=== PATIENT | male | born 1945 | race Caucasian/White ===

== ENCOUNTER → 2021-05-20 | Outpatient (CLI) | payer MEDICARE, OTHER ==
--- NOTE | 2021-05-20 13:53 | US ---
EXAMINATION TYPE: US venous doppler duplex LE RT DATE OF EXAM: 05/20/2021 1:35 PM COMPARISON: NONE CLINICAL HISTORY: I80.9 Phlebitis and thrombophlebitis redness ON UPPER TIGHT SIDE PERFORMED: RT TECHNIQUE: The lower extremity deep venous system is examined utilizing real time linear array sonog rigoberto with graded compression, doppler sonography and color-flow sonography. VESSELS IMAGED: Common Femoral Vein Deep Femoral Vein Greater Saphenous Vein * Femoral Vein Popliteal Vein Small Saphenous Vein * Proximal Calf Veins (* superficial vessels) Right Leg: Negative for DVT IMPRESSION: 1. No evidence of deep venous thrombosis in the right lower extremity veins.
== END | disposition home or self-care (01) ==
LOC: RADUSWWP 12:35
PROVIDERS: ATTEND Orthopaedic Surgery
DX: I80.9 Phlebitis and thrombophlebitis of unspecified site (principal); M79.651 Pain in right thigh

== ENCOUNTER → 2025-05-15 | Outpatient (CLI) | payer MEDICARE ==
--- NOTE | 2025-05-16 08:30 | US ---
EXAMINATION TYPE: US kidneys/renal and bladder DATE OF EXAM: 05/15/2025 COMPARISON: NONE CLINICAL INDICATION: Male, 79 years old with history of R31.1 BENIGN ESSENTIAL MICROSCOPIC HEMATURIA; hematuria TECHNIQUE: Grayscale imaging of the bilateral kidneys and urinary bladder: FINDINGS: EXAM MEASUREMENTS: Right Kidney: 13.1 x 5.9 x 6.4 cm Left Kidney: 15.2 x 5.5 x 7.3 cm Right Kidney: dilated renal pelvis , no calculi or hydronephrosis. Left Kidney: dilated renal pelvis no calculi or hydronephrosis. Bladder: appears wnl, slightly limited due to ostomy bag Bilateral Jets seen: Only left jet seen There is no evidence for hydronephrosis at this point in time. No nephrolithiasis is seen. No aldo s are identified. The urinary bladder is anechoic. IMPRESSION: No evidence for obstructive uropathy. Bilateral extrarenal pelves. [facility], , 05/16/2025 8:27 AM
== END | disposition home or self-care (01) ==
LOC: RADUSWWP 15:46
PROVIDERS: ATTEND Urology
DX: R31.1 Benign essential microscopic hematuria (principal)
CPT/HCPCS: 76770